=== PATIENT | female | born 1965 ===

== ENCOUNTER 2019-05-03 15:49 | Emergency (ER) | payer OTHER, SELFPAY ==
[2019-05-03 16:18] VITALS: BP 137/108; PULSE 86; RESP 20; TEMP 36.6; O2SAT 96
--- NOTE | 2019-05-03 16:22 | ED.EYEPROB ---
HPI - Eye Problem General Chief complaint: Eye Problems Stated complaint: Right eye painful/watery Time Seen by Provider: 05/03/19 16:22 Source: patient History of Present Illness HPI Narrative: Patient presents with redness itching and drainage to right eye. Patient states her symptoms started yesterday and she normally wears contacts but has taken them out due to the itching and redness in her eye. Patient denies any eye pain, no vision problems no injury to eye. chief complaint: eye redness Location: right eye Place: home Related Data Home Medications Medication Instructions Recorded Confirmed albuterol sulfate 2 puff INHALATION QID 05/03/19 05/03/19 fluticasone propion-salmeterol 1 inh INHALATION Q12H 05/03/19 05/03/19 [Advair Diskus] tiotropium bromide [Spiriva with 1 cap INHALATION DAILY 05/03/19 05/03/19 HandiHaler] Allergies Allergy/AdvReac Type Severity Reaction Status Date / Time No Known Allergies Allergy Verified 05/03/19 16:31 Review of Systems Review of Systems: Narrative: CONSTITUTIONAL: Denies fever, chills, or sweats. EYES: Denies visual changes, redness, or discharge. ENT: Denies rhinorrhea, congestion, sore throat, or otalgia. Redness and drainage to right eye CARDIOVASCULAR: Denies chest pain, palpitations, or edema. RESPIRATORY: Denies cough or dyspnea. GASTROINTESTINAL: Denies abdominal pain, nausea, vomiting, or diarrhea. GENITOURINARY: Denies dysuria or hematuria. SKIN: Denies rash or itching. MUSCULOSKELETAL: Denies back pain, joint pain, or myalgia. NEUROLOGIC: Denies headache, numbness, or weakness. PSYCHIATRIC: Denies anxiety or depression. PMFSH Comments At time of signature, agree with nursing past medical, surgical, social and family history. There is no relevant family history pertinent to the presenting complaint Exam Narrative: Exam Narrative: GENERAL: Well-appearing, well-nourished, and in no acute distress. HEAD: Normocephalic, atraumatic. EYES: PERRLA and EOMI. ENT: Nares clear, no rhinorrhea or epistaxis. Mucous membranes moist. Method of inspection: Right eye, viewed with fluorescein, viewed with slit lamp, ALCAINE APPLIED, Pupil: Both eyes, 2 mm, equal, reactivity brisk to direct light, Conjunctiva: Right, not with conjunctivitis, not pale, not with subconjunctival hemorrhage, Cornea: Right, no abrasions, Sclera: Right, conjunctivitis , Intraocular pressure: Right, 16 mm Hg, Red reflex: Bilaterally, present. NECK: Supple. CHEST: Clear to auscultation. No respiratory distress. HEART: Regular rate and rhythm. No murmur heard. Normal peripheral pulses. ABDOMEN: Soft, nontender, nondistended, normal active bowel sounds. EXTREMITIES: Normal range of motion. No edema. SKIN: Warm, dry, no rash. NEURO: No focal deficits. Alert and oriented x3. Jerome Coma Scale Eye Opening: Spontaneous 4 Jerome Coma Scale Motor: Obeys Commands 6 Jerome Coma Scale Verbal: Oriented 5 Jerome Coma Scale Total 15 Eyes: Conjunctivae: conjunctival abnormality right Other: Conjunctivitis Course Vital Signs Vital signs: Vital Signs Temperature 36.6 C 05/03/19 16:18 Pulse Rate 86 05/03/19 16:18 Respiratory Rate 20 05/03/19 16:18 Blood Pressure 137/108 H 05/03/19 16:18 Pulse Oximetry 96 05/03/19 16:18 Temperature 36.6 C 05/03/19 16:18 Pulse Rate 86 05/03/19 16:18 Respiratory Rate 20 05/03/19 16:18 Blood Pressure 137/108 H 05/03/19 16:18 Pulse Oximetry 96 05/03/19 16:18 Please STACIE schedule a followup visit with your personal physician for further evaluation and treatment. Including recheck and discussion of your blood pressure. If your symptoms persist, change or worsen significantly before you can contact your personal physician then please, without delay, go to the emergency department for further evaluation Addressed elevated BP today. Today's blood pressure higher than recommended range. Discussed importance of follow -up with PCP and possible
== END 2019-05-03 16:37 | disposition home or self-care (01) ==
PROVIDERS: Emergency Provider Nurse Practitioner Family
DX: H10.9 Unspecified conjunctivitis (principal); J45.909 Unspecified asthma, uncomplicated
CPT/HCPCS: 99213; G0463

== ENCOUNTER 2020-09-18 08:13 | Emergency (ER) | payer OTHER, SELFPAY ==
--- NOTE | ~2020-09-18 | XR_ITS ---
EXAMINATION: XR chest 2V DATE: 09/18/2020 08:55 INDICATION: Shortness of breath and chest pain TECHNIQUE: PA and lateral views of the chest are obtained. COMPARISON: 01/18/2015 FINDINGS: There are patchy opacities in the mid and lower lung zones. There is no pleural effusion or pneumothorax. The cardiomediastinal silhouette is normal. Healed bilateral rib fractures are noted. There is moderate thoracic spondylosis. IMPRESSION: 1. Patchy opacities of the mid and lower lung zones which could be infectious or inflammatory. Reviewed, dictated and finalized at location A. IMPRESSION: 1. Patchy opacities of the mid and lower lung zones which could be infectious o r inflammatory.
[2020-09-18 08:30] VITALS: BP 144/91; PULSE 83; RESP 20; TEMP 37.2; O2SAT 98
--- NOTE | 2020-09-18 08:33 | ED.URI ---
HPI - URI/Sore Throat General Chief Complaint: Upper Respiratory Infection Stated Complaint: Shortness of breath Time Seen by Provider: 09/18/20 08:33 Source: patient Mode of arrival: ambulatory Limitations: no limitations History of Present Illness HPI Narrative: Jessica Loaiza is a 55 yo female with a PMH of alcohol abuse, COPD, tobacco abuse, who [facility] because she is medication for controlling her COPD. She is on Advair and albuterol and has only an albuterol inhaler left and she is having difficulty with shortness of breath currently . Denies any pain is able to rest, feels short of breath when she walks any distance. She has a history of on on her left lung that has been followed by a prior physician who is since , and the old job she had had a clinic that was following her also. She is unable to tell me what her third inhaler was that she was using and was unable to identify the name of the drug when options offered her Related Data Home Medications Medication Instructions Recorded Confirmed albuterol sulfate 2 puff INHALATION QID 05/03/19 09/18/20 Allergies Allergy/AdvReac Type Severity Reaction Status Date / Time No Known Allergies Allergy Verified 09/18/20 08:48 Review of Systems Review of Systems: Narrative: CONSTITUTIONAL: Denies fever, chills, sweats. EYES: Denies visual changes, redness, discharge. ENT: Denies rhinorrhea, congestion, sore throat, otalgia. CARDIOVASCULAR: Denies chest pain, palpitations, edema. RESPIRATORY mild dyspnea, wheezing, dry cough, S OB GASTROINTESTINAL: Denies abdominal pain, nausea, vomiting, diarrhea. GENITOURINARY: Denies dysuria, hematuria, abnormal discharge SKIN: Denies rash or itching. NEUROLOGIC: Denies numbness, or focal weakness. PSYCHIATRIC: Denies anxiety or depression. [facility] Past Medical History Medical History COPD (chronic obstructive pulmonary disease) Tobacco abuse Family History Family History Other Diabetes mellitus Social History Social History (Updated 09/18/20 @ 09:10 by Marla Gusman CNP) Smoking packs per day: 1 Smoking cigarettes per day: 20.0 Smoking status: Current every day smoker Tobacco type: cigarettes Alcohol intake: current Alcohol use details: Drinks alcohol daily Comments At time of signature, I agree with nursing past medical, surgical, social and family history. There is no relevant family history pertinent to the presenting complaint. Patient has elevated blood pressure at this visit, she has no PCP, will be given referrals for blood pressure check again Exam Narrative: Exam Narrative: GENERAL: This is a well-nourished, well-developed patient, in mild distress. HEAD: normocephalic, atraumatic. EYES: Sclera clear/white. Vision is grossly intact. EARS: External ears normal, Hearing grossly intact. NOSE: External nose normal without nasal discharge, nares without redness, no rhinorrhea. THROAT: Mucous membranes moist, NECK: Neck supple, non-tender CARDIOVASCULAR: Regular rate and rhythm without murmurs, gallops, or rubs. RESPIRATORY: Clear to auscultation. Breath sounds equal bilaterally. No wheezes, rales, or rhonchi. GASTROINTESTINAL: Abdomen soft, SKIN: warm, intact with no suspicious lesions or rash, good texture and turgor. NEURO: awake, alert, and oriented to person, place and time. There were no obvious focal neurologic abnormalities. Steady gait EXTREMITIES: Normal range of motion. 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
[2020-09-20 20:32] LABS: SARS-CoV-2 RNA PCR Negative
== END 2020-09-18 09:49 | disposition home or self-care (01) ==
PROVIDERS: Emergency Provider Nurse Practitioner
DX: J44.9 Chronic obstructive pulmonary disease, unspecified (principal); J18.9 Pneumonia, unspecified organism; Z20.822 Contact with and (suspected) exposure to COVID-19; F17.210 Nicotine dependence, cigarettes, uncomplicated
CPT/HCPCS: 71046; 87426; 99213; C9803; G0463; U0003; U0005

== ENCOUNTER 2022-08-03 12:09 | Emergency (ER) | payer OTHER, BC, SELFPAY ==
[2022-08-03 12:19] VITALS: BP 156/87; PULSE 91; RESP 18; TEMP 36.7; O2SAT 97
--- NOTE | 2022-08-03 12:55 | ED.NAVMDI ---
HPI - Nausea/Vomiting/Diarrhea General Chief complaint: Nausea/Vomiting/Diarrhea Stated complaint: Chest Congestion/Mouth Sore Source: patient and RN notes reviewed History of Present Illness HPI Narrative: 57 yo F presents to urgent care with complaints of nausea and diarrhea x 2-3 days. Pt states she will cough and vomit post-tussis. Pt states she has also been having mouth burning when she uses her Symbicort inhaler. Pt states she only uses her Symbicort inhaler intermittently and not as prescribed b/c she doesn't like the way it makes her feel. Pt began using the inhaler in May. Denies any abdominal pain, fevers, chills, chest pain, or SOB. Related Data Allergies Allergy/AdvReac Type Severity Reaction Status Date / Time No Known Allergies Allergy Verified 08/03/22 12:20 Review of Systems Review of Systems: Pertinent positives and pertinent negatives per HPI. [facility] Past Medical History Medical History (Updated 08/03/22 @ 12:57 by Karla Mcleod, SHANTELL) Asthma COPD (chronic obstructive pulmonary disease) Tobacco abuse Family History Family History Other Diabetes mellitus Social History Social History Smoking packs per day: 1 Smoking cigarettes per day: 20.0 Smoking status: Current every day smoker Tobacco type: cigarettes Alcohol intake: current Alcohol use details: Drinks alcohol daily Comments At the time of my signature, I reviewed and agree with the nursing past medical, surgical, social, and family history. There is no relevant family history pertinent to the patient complaint. Exam Narrative: GENERAL: This is a well-nourished, well-developed patient, in no apparent distress. HEAD: normocephalic, atraumatic. EYES: Sclera clear/white. Vision is grossly intact. EARS: External ears normal, auditory canals clear and without drainage. Hearing grossly intact. NOSE: External nose normal with no obvious nasal discharge, nares without redness, no rhinorrhea. THROAT: Mucous membranes moist, posterior pharynx erythremic MOUTH: white patches noted to tongue NECK: Neck supple, non-tender without lymphadenopathy, masses or thyromegaly. CARDIOVASCULAR: Regular rate and rhythm without murmurs, gallops, or rubs. RESPIRATORY: Clear to auscultation. Breath sounds equal bilaterally. No wheezes, rales, or rhonchi. GASTROINTESTINAL: Abdomen soft, non-tender, nondistended. Bowel sounds are active. No hepato-splenomegaly, or palpable masses. No guarding. SKIN: warm, intact with no suspicious lesions or rash, good texture and turgor. NEURO: awake, alert, and oriented to person, place and time. There were no obvious focal neurologic abnormalities. Course Course Level of Care: Express Care Visit Vital Signs Vital signs: Vital Signs Temperature 98.0 F 08/03/22 12:19 Pulse Rate 91 08/03/22 12:19 Respiratory Rate 18 08/03/22 12:19 Blood Pressure 156/87 H 08/03/22 12:19 Pulse Oximetry 97 08/03/22 12:19 Oxygen Delivery Room Air 08/03/22 12:19 Temperature 98.0 F 08/03/22 12:19 Pulse Rate 91 08/03/22 12:19 Respiratory Rate 18 08/03/22 12:19 Blood Pressure 156/87 H 08/03/22 12:19 Pulse Oximetry 97 08/03/22 12:19 Oxygen Delivery Room Air 08/03/22 12:19 reviewed. MDM - Nausea/Vomiting/Diarrhea MDM Narrative Medical decision making narrative: You've been diagnosed with a viral illness that would not require antibiotics at this time. Take the Zofran ODT at home as directed for nausea and get plenty of fluids. You may take Imodium for diarrhea. If you would like to eat food, you should follow the BRAT diet (bananas, rice, applesauce, and toast, or things of the like). If you develop any new or worsening symptoms, you should go to the emergency dept without hesitation. Follow up with your dust collector in 2-5 days. Take the Nystatin as directed
== END 2022-08-03 13:03 | disposition home or self-care (01) ==
PROVIDERS: Emergency Provider Nurse Practitioner Family
DX: K52.9 Noninfective gastroenteritis and colitis, unspecified (principal); B37.0 Candidal stomatitis; J44.9 Chronic obstructive pulmonary disease, unspecified; F17.210 Nicotine dependence, cigarettes, uncomplicated
CPT/HCPCS: 99213; G0463

== ENCOUNTER 2023-08-24 10:39 | Emergency (ER) | payer OTHER, SELFPAY ==
[2023-08-24 10:44] VITALS: BP 144/85; PULSE 94; RESP 18; TEMP 37.1; O2SAT 98
--- NOTE | 2023-08-24 10:51 | ED.SKABFB ---
HPI - Skin/Abscess/Foreign Bdy General Chief complaint: Skin/Abscess/Foreign Body Stated complaint: Chiggars Time Seen by Provider: 08/24/23 10:51 Source: patient, RN notes reviewed and old records reviewed Mode of arrival: ambulatory Limitations: no limitations History of Present Illness HPI narrative: 58 year old female who presents to [facility] with complaints of getting chigger bites while camping one week ago. She states that she went to the ED at [facility] 2 days ago and received medrol dose pack and has been taking Zyrtec which is helping some. She went to medical today to return to work and was told she can't return with open sores on her skin. Patient has scabbed areas on her abdomen and back but has some open sores on her left neck . Patient reports that she needs work note to return to work MD complaint: rash (chigger bites) Onset (ago): week(s) (1) Severity: moderate Quality: pruritic Treatments prior to arrival: other (zyrtec and medrol dose pack, Atarax) Related Data Home Medications Medication Instructions Recorded Confirmed cetirizine 10 mg tablet 10 mg PO DAILY 08/24/23 08/24/23 hydroxyzine HCl 25 mg tablet 25 mg PO BID PRN Itching 08/24/23 08/24/23 lisinopril 10 mg tablet 10 mg PO DAILY 08/24/23 08/24/23 methylprednisolone 4 mg tablets in 4 mg PO DAILY 08/24/23 08/24/23 a dose pack Allergies Allergy/AdvReac Type Severity Reaction Status Date / Time No Known Allergies Allergy Verified 08/24/23 10:51 Review of Systems Review of Systems: CONSTITUTIONAL: Denies fever, chills, or sweats. CARDIOVASCULAR: Denies chest pain, palpitations, or edema. RESPIRATORY: Denies cough or dyspnea. SKIN: Reports scabbed lesions on back and on abdomen with some small open bites on her left neck which are itchy MUSCULOSKELETAL: Denies joint pain or myalgia. NEUROLOGIC: Denies headache, numbness, or weakness. All systems reviewed & are unremarkable except as noted in HPI and below PMFSH Past Medical History Medical History (Updated 08/25/23 @ 16:41 by Lizette Higgins NP) Asthma COPD (chronic obstructive pulmonary disease) Hypertension Tobacco abuse Surgical History Surgical History (Updated 08/25/23 @ 16:35 by Lizette Higgins NP) Previous section Family History Family History Other Diabetes mellitus Social History Social History (Updated 08/25/23 @ 16:36 by Lizette Higgins NP) Smoking packs per day: 1 Smoking cigarettes per day: 20.0 Smoking status: Current every day smoker Tobacco type: cigarettes Alcohol intake: current Alcohol use details: Drinks alcohol social Substance use type: does not use Gender identity (if verbalized by the patient): Female Comments At time of signature, agree with nursing past medical, surgical, social and family history. There is no relevant family history pertinent to the presenting complaint Exam Narrative: GENERAL: Well-appearing, well-nourished, and in no acute distress. HEAD: Normocephalic, atraumatic. EYES: PERRLA, conjunctivae clear, and EOMI. ENT: Mucous membranes moist. Oropharynx without edema, erythema or lesions. NECK: Supple. No lymphadenopathy CHEST: Clear to auscultation. No respiratory distress.SAO2 98% on room air HEART: Regular rate and rhythm. SKIN: Warm, dry.? Patches of small scabbed lesions on abdomen and on back with some small open lesions on left side of neck from stated chigger bites itchy NEURO:? Alert and oriented x3. PSYCH: Normal mood and affect Course Course Emergency Course: Patient is aware of diagnosis, understands and agrees to treatment plan.? Anticipatory guidance given.? Patient agrees to follow-up as directed and is aware of reasons to seek care at the emergency department. Portions of this record may have been created with voice recognition software Level of Care: Express Care Visit Vital Signs Vital sig
== END 2023-08-24 11:11 | disposition home or self-care (01) ==
PROVIDERS: Emergency Provider Registered Nurse; PCP Nurse Practitioner Family
DX: B88.0 Other acariasis (principal); F17.210 Nicotine dependence, cigarettes, uncomplicated; J44.9 Chronic obstructive pulmonary disease, unspecified
CPT/HCPCS: 99213; G0463